=== PATIENT | male | born 1990 | race Caucasian/White ===

== ENCOUNTER 2016-10-10 21:49 | Emergency (ER) | payer BC ==
[~2016-10-10] VITALS: Ht 182.9 cm; Wt 94.3 kg
[~2016-10-10 21:49] MED LIST: NORCO 5/3251 TABLET PO; ZOFRAN8 MG PO
[2016-10-10 23:06] LABS: HEMATOCRIT 44.4 % (38.0-50.0); MCH 29.5 PG (29.0-34.0); MCHC 33.3 G/DL (30.0-36.0); MCV 88.4 FL (86-99); MEAN PLAT.VOLUME 9.8 uM^3 (9.0-12.4); PLATELET COUNT 183 K/uL (156-360); RBC DIS.WIDTH-CV 12.2 % (11.8-14.6); RBC DIS.WIDTH-SD 39.8 % (39-53); RED BLOOD COUNT 5.02 M/uL (4.00-5.50); WHITE BLOOD COUNT 5.2 K/uL (4.1-10.2)
[2016-10-10 23:21] LABS: CHLORIDE 104 mEq/L (99-109); POTASSIUM 4.3 mEq/L (3.7-5.4); SODIUM 138 mEq/L (136-147)
[2016-10-10 23:23] LABS: GLUCOSE 93 mg/dL (70-99)
[2016-10-10 23:24] LABS: ANION GAP 10 MEQ/L (2-14)
[2016-10-10 23:25] LABS: TOTAL BILIRUBIN 0.4 mg/dL (0.0-1.0)
[2016-10-10 23:26] LABS: ALKALINE PHOSPHATASE 82 IU/L (3-129)
[2016-10-10 23:27] LABS: GFR ESTIMATE (CALCULATED) > 59 mL/min/
[2016-10-10 23:28] LABS: UREA NITROGEN (BUN) 21 mg/dL (9-23)
[2016-10-11 00:21] LABS: ADD MIUA? YES; BILIRUBIN NEGATIVE; BLOOD MODERATE; COLOR YELLOW ((YELLOW)); GLUCOSE (STRIP) NEGATIVE; KETONES NEGATIVE; LEUKOCYTES NEGATIVE; NITRITE NEGATIVE; PROTEIN (STRIP) NEGATIVE; SPECIFIC GRAVITY 1.012 (1.000-1.030); UROBILINOGEN 0.2 MG/DL (0.2-1.0)
[2016-10-11 00:36] LABS: BACTERIA NONE SEEN /HPF; EPITHELIAL CELLS NONE SEEN /HPF; MUCUS TRACE /LPF; UCUL ADDED? NO; WHITE BLOOD CELLS 0-5 /HPF (0-5)
[2016-10-11 00:39] LABS: LIPASE 29 U/L (1.0-51.0)
[2016-10-11 01:05] VITALS: BP 128/84
== END 2016-10-11 01:06 | disposition home or self-care (01) ==
LOC: EME 21:49
DX: N20.1 Calculus of ureter (principal); R79.89 Other specified abnormal findings of blood chemistry
CPT/HCPCS: 74176; 80053; 81003; 83690; 85027; 99281; 99282